=== PATIENT | male | born 1985 | race Caucasian/White ===

== ENCOUNTER 2017-01-07 10:35 | Emergency (ER) | payer OTHER ==
[2017-01-07 10:43] VITALS: BP 138/94; PULSE 88; TEMP 98.3; BMI 31.2
--- NOTE | 2017-01-07 11:22 | PDOC ---
History of Present Illness - General Chief Complaint: Edema Stated Complaint: SWELLING TO RIGHT SCROTUM Time Seen by Provider: 01/07/17 10:51 History Source: Patient Exam Limitations: No Limitations - History of Present Illness Initial Comments: 01/07/17 11:22 This patient is a 31-year-old male with a history of anxiety who presents emergency department with a complaint of right scrotal swelling. Patient states he was at work yesterday, suddenly felt like he was kicked in the scrotum, since then he's had an uncomfortable feeling in his groin. After going home he took a nap, took a shower and then noted right scrotal swelling. Symptoms occurred while doing nothing in particular at work, he works as a ordnance truck installation supervisor. He denies any direct trauma. He denies any heavy lifting. He denies dysuria or hematuria. He is occasionally sexually active but has no pyuria, he doubts that he has a sexually transmitted disease. PMH: anxiety PSH: Denies Meds: please see MAR ALL: NKDA Social: uses alcohol more than socially, denies drug or cigarette use GENERAL/CONSTITUTIONAL: No: fever, chills, weakness, loss of appetite. GASTROINTESTINAL: Yes: right groin pain No: nausea, vomiting, diarrhea GENITOURINARY: No: dysuria, hematuria, frequency, urgency, flank pain. MUSCULOSKELETAL: No: back pain, neck pain, joint pain, muscle swelling or pain SKIN: No: erythema or bruising GENERAL: The patient is in no acute distress. ABDOMEN: Soft, nontender, normoactive bowel sounds. No guarding, no rebound. : Right scrotal swelling, enlargement, no vas deferens tenderness to palpation , (+) cremasteric reflex, SKIN: Warm, Dry, normal turgor, no rashes or lesions noted. Past History - Past Medical History Allergies/Adverse Reactions: Allergies Allergy/AdvReac Type Severity Reaction Status Date / Time No Known Allergies Allergy Verified 01/07/17 10:36 Home Medications: Ambulatory Orders Levofloxacin [Levaquin] 500 mg PO DAILY #10 tablet 01/07/17 Psychiatric Problems: (ANXIETY) - Psycho/Social/Smoking Cessation Hx Anxiety: Yes Suicidal Ideation: No Smoking History: Never smoked Have you smoked in the past 12 months: No Information on smoking cessation initiated: No Hx Alcohol Use: No Drug/Substance Use Hx: No Substance Use Type: None *Physical Exam - Vital Signs Last Vital Signs Temp Pulse Resp BP Pulse Ox 98.3 F 88 18 138/94 98 01/07/17 10:36 01/07/17 10:36 01/07/17 10:36 01/07/17 10:36 01/07/17 10:36 ED Treatment Course - RADIOLOGY Radiology Studies Ordered: Category Date Time Status SCROTUM AND CONTENTS US [US] Stat Ultrasound 01/07/17 11:14 Ordered Medical Decision Making - Medical Decision Making 01/07/17 11:26 Will do scrotal US Will do UA Will do GC/Chlamydia 01/07/17 13:57 Enlarged right testicle, heterogeneous appearance, concerning for infiltrative malignancy versus orchitis versus hematoma. Patient's was born in this country and immunized historically. Patient has had no preceding upper respiratory infection to suggest mumps. Case reviewed with Dr. Alcantara. He states given the rapid onset of patient's symptoms it is unlikely malignancy. I have discussed this with the patient. He will follow-up with Dr. Alcantara in the office before the antibiotic. Patient will be put on Levaquin 500 mg for 10 days. Last patient to return to the emergency Department with any other concerns or complaints, or changes in his status 01/07/17 14:08 Laboratory Tests 01/07/17 11:20 Urine Ketones Negative Urine Blood Negative Ur Leukocyte Esterase Negative *DC/Admit/Observation/Transfer Diagnosis at time of Disposition: Epididymo-orchitis - Discharge Dispostion Disposition: HOME Condition at time of disposition: Stable Admit: No - Prescriptions Prescriptions: Levofloxacin [Levaquin] 500 mg PO DAILY #10 tablet - Patient Instructions Printed Discharge Instructions: DI for Epididymitis Additional Instructions: Jaden Thank you for coming into the ER today. Please take medications as prescribed. Please follow up with Dr. Alcantara as we discussed before the end of the week. Please return to the ER for any other concerns or complaints. Please focus on scrotal elevation, and ice to the area as tolerable.
[2017-01-07 11:38] LABS: PH,URINE 5.5 (4.5-8); URINE APPEARANCE Clear; URINE BILIRUBIN Negative (NEGATIVE); URINE BLOOD Negative (NEGATIVE); URINE COLOR YELLOW; URINE GLUCOSE (UA) Negative (NEGATIVE); URINE KETONE Negative (NEGATIVE); URINE LEUK ESTERASE Negative (NEGATIVE); URINE NITRITE Negative (NEGATIVE); URINE PROTEIN Negative (NEGATIVE); URINE UROBILINOGEN 0.2 E.U/dl (0.2-1.0)
== END 2017-01-07 14:14 | disposition home or self-care (01) ==
LOC: FER 10:35
DX: N45.3 Epididymo-orchitis (principal); F41.9 Anxiety disorder, unspecified
CPT/HCPCS: 36415; 76870-TC; 81003; 87491; 87591; 99282-25